=== PATIENT | male | born 1950 | race African-American/Black ===

== ENCOUNTER 2019-05-23 17:15 | Inpatient (IN) ==
[2019-05-23] MEDS ORDERED: OFIRMEV IV 1000 MG VIAL 500 MG/50 ML VIAL IV PRN (17:31)
[2019-05-23] MEDS ORDERED: OFIRMEV IV 1000 MG VIAL 1,000 MG/100 ML VIAL IV PRN (17:32)
[2019-05-23] MEDS ORDERED: OFIRMEV IV 1000 MG VIAL 1,000 MG/100 ML VIAL IV ONE (17:40)
--- NOTE | 2019-05-23 17:56 | DR.DIZZY ---
HPI Time seen Time Seen by Provider: 05/23/19 17:55 PCP Primary Care Physician: TONYA HPI Comment HPI Comment: PATIENT IS 69YR OLD MALE IS IN THE EMERGENCY ROOM WITH ELEVATED TEMP AND GENERALIZED WEAKNESS. HE IS SLEEPY BUT WILL WAKE UP AND TALK AND ANSWER QUESTIONS. HE DEVELOP FEVER O04/29/2019 WHEN HE WENT TO HAVE EYE SURGERY. IT WAS CANCEL DUE TO FEVER. AT THAT TIME HE HAD ABSCESS ON HIS BACK.HE WAS GIVEN BACTRIM DS. TOOK MED FOR FEW DAYS AND STOP BECAUSE HE DID NOT LIKE THE WAY BACTRIM MADE HIM FEEL. HE STARTED BACTRIM 2 DAYS AGO WHEN FEVER STRTED AGAIN. TODAY HE IS WEAK, NOT ABLE TO WALK. TENMP 105'F IN ED CURRENTLY. Complaint Chief Complaint Doctor Comments: GENERALIZE WEAKNESS AND ELEVATED TEMPERATURE. Chief Complaint:: "WE CALLED THE DOCTOR'S OFFICE EARLIER TODAY AND THEY SAID HE IS ALLERGIC TO BACTRIM. HE HAS A ABCESS ON HIS BACK THAT HE HAS BEEN TAKING BACTRIM FOR. HE CAN'T WALK OR MOVE HIS LOWER BODY." Self Treatment fo Chief Complaint: NONE Nurses Notes Reviewed Nurses Notes Review: Yes Source History Provided: Patient Mode of Arrival Mode of Arrival: Wheelchair Timing Onset of Chief Complaint: 05/23/19 Came on: Gradually Duration Duration: Constant Duration: Weeks Location of Weakness Weakness Location: Generalized Context Onset: At rest History of: None Stroke Symptoms: Dizziness Severity Severity: Normal activity level Modifying factors Worsens: Change in Position PMH PMH Past Medical History: No Past Surgical History: No Family History History of Family Medical Conditions: Yes Family Medical History: Diabetes Mellitus and Hypertension Social History Does patient currently use any type of tobacco product: No Have you used tobacco products in the last 12 months: No Type of Tobacco Use: None Does any household member use tobacco: No Alcohol Use: None Do you use any recreational Drugs:: No Lives With: Family Lives Where: Home infectious screening In the last 2 months have you had wt loss of >10#?: NO Have you had fever, night sweats or hemotysis?: No Have you traveled outside the country in the last 6 months?: No Isolation: Standard PE Vital Signs Vitals: Temperature 98.4 F Pulse Rate [Apical] 124 Pulse Rate 100 Respiratory Rate 18 Blood Pressure [Right Arm] 95/51 Blood Pressure 113/54 O2 Sat by Pulse Oximetry 95 ROR Labs Reviewed Result Diagrams: 05/23/19 17:26 05/23/19 17:26 Laboratory: WBC 9.4 X10^3/uL (3.6-10.0) 05/23/19 17: RBC 4.12 X10^6/uL (4.7-6.0) L 05/23/19 17: Hgb 13.1 g/dL (13.5-18.0) L 05/23/19 17: Hct 38.1 % (42.0-54.0) L 05/23/19 17: MCV 92.5 fL (80.0-100.0) 05/23/19 17: MCH 31.8 pg (27.0-34.0) 05/23/19 17: MCHC 34.4 g/dL (33.0-35.0) 05/23/19 17: RDW 13.4 % (11.6-16.5) 05/23/19 17: Plt Count 233 X10^3/uL (150.0-450.0) 05/23/19 17: MPV 8.2 fL (7.4-11.0) 05/23/19 17: Neut % (Auto) 78.1 % (42.0-75.0) H 05/23/19 17: Lymph % (Auto) 11.3 % (21.0-51.0) L 05/23/19 17: [place] % (Auto) 9.5 % (0.0-13.0) 05/23/19 17: Eos % (Auto) 0.2 % (0.9-2.9) L 05/23/19 17: Baso % (Auto) 0.9 % (0.2-1.0) 05/23/19 17: Neut # (Auto) 7.4 x10^3/uL (2.2-4.8) H 05/23/19 17: Lymph # (Auto) 1.1 X10^3/uL (1.3-2.9) L 05/23/19 17:26 [place] # (Auto) 0.9 x10^3/uL (0.3-0.8) H 05/23/19 17: Eos # (Auto) 0.0 x10^3/uL (0.0-0.2) 05/23/19 17:26 Baso # (Auto) 0.1 X10^3/uL (0.0-0.1) 05/23/19 17:26 Absolute Nucleated RBC 0.1 /100WBC 05/23/19 17:26 Sodium 140 mmol/L (136-145) 05/23/19 17:26 Corrected Sodium 141 mmol/L (136-145) 05/23/19 17:26 Potassium 3.3 mmol/L (3.5-5.1) L 05/23/19 17:26 Chloride 104 mmol/L (98-107) 05/23/19 17:26 Carbon Dioxide 21.6 mmol/L (21-32) 05/23/19 17:26 BUN 28 mg/dL (7-18) H 05/23/19 17:26 Creatinine 2.44 mg/dL (0.70-1.30) H 05/23/19 17:26 Est GFR (MDRD) Af Amer 34 (>60) L 05/23/19 17:26 Est GFR (MDRD) Non-Af 28 (>60) L 05/23/19 17:26 Glucose 126 mg/dL (65-99) H 05/23/19 17:26 Lactic Acid 2.2 mmol/L (0.4-2.0) H 05/23/19 17:26 Calcium 9.3 mg/dL (8.5-10.1) 05/23/19 17:26 Corrected Calcium TNP 05/23/19 17:26 Total Bilirubin 1.30 mg/dL (0.2-1.0) H 05/23/19 17:26 AST 43 Units/L (15-37) H 05/23/19 17:26 ALT 44 Units/L (12-78) 05/23/19 17:26 Alkaline Phosphatase 52 Units/L (46-116) 05/23/19 17:26 Total Protein 8.4 g/dL (6.4-8.2) H 05/23/19 17:26 Albumin 3.9 g/dL (3.4-5.0) 05/23/19 17:26 Globulin 4.5 g/dL (2.5-4.5) 05/23/19 17:26 Albumin/Globulin Ratio 0.9 Ratio (1.1-2.1) L 05/23/19 17:26 Specimen Type Random urine 05/23/19 19:40 Urine Color Yellow (YELLOW) 05/23/19 19:40 Urine Appearance Slightly hazy (CLEAR) 05/23/19 19:40 Urine pH 5.0 (5.0 - 8.0) 05/23/19 19:40 Ur Specific [place] 1.015 (1.000-1.030) 05/23/19 19:40 Urine Protein 3+ (NEGATIVE) 05/23/19 19:40 Urine Glucose (UA) Negative (NEGATIVE) 05/23/19 19:40 Urine Ketones 1+ (NEGATIVE) 05/23/19 19:40 Urine Occult Blood 5+ (NEGATIVE) 05/23/19 19:40 Urine Nitrite Negative (NEGATIVE) 05/23/19 19:40 Urine Bilirubin Negative (NEGATIVE) 05/23/19 19:40 Urine Urobilinogen Normal (NORMAL) 05/23/19 19:40 Ur Leukocyte Esterase Negative (NEGATIVE) 05/23/19 19:40 Urine RBC 0-2 /HPF (NONE SEEN) 05/23/19 19:40 Urine WBC 0-2 /HPF (NONE SEEN) 05/23/19 19:40 Ur Squamous Epith Cells Moderate /HPF (NEGATIVE) 05/23/19 19:40 Urine Bacteria Trace /HPF (NEGATIVE) 05/23/19 19:40 Urine Mucus Few /HPF (NEGATIVE) 05/23/19 19:40 Ur Culture Indicated? No/not indicated 05/23/19 19:40 Opioid Opioid Risk Tool Total: 0 Total Score Risk Category: Low Risk Copyright: Ze JOHNSON predicting aberrant behaviors Instructions Forms: Excuse From Work
[2019-05-23] MEDS ORDERED: NS 1000 ML 1,000 ML IV SCH (18:00)
[2019-05-23 18:09] LABS: BASOPHILS # (AUTO) 0.1 X10^3/uL (0.0-0.1); BASOPHILS % (AUTO) 0.9 % (0.2-1.0); EOSINOPHILS % (AUTO) 0.2 % (0.9-2.9); HEMATOCRIT 38.1 % (42.0-54.0); HEMOGLOBIN 13.1 g/dL (13.5-18.0); LYMPHOCYTES # (AUTO) 1.1 X10^3/uL (1.3-2.9); LYMPHOCYTES % (AUTO) 11.3 % (21.0-51.0); MEAN CORPUSCULAR HEMOGLOBIN 31.8 pg (27.0-34.0); MEAN CORPUSCULAR HGB CONC 34.4 g/dL (33.0-35.0); MEAN CORPUSCULAR VOLUME 92.5 fL (80.0-100.0); MEAN PLATELET VOLUME 8.2 fL (7.4-11.0); MONOCYTES # (AUTO) 0.9 x10^3/uL (0.3-0.8); MONOCYTES % (AUTO) 9.5 % (0.0-13.0); NEUTROPHILS # (AUTO) 7.4 x10^3/uL (2.2-4.8); NEUTROPHILS % (AUTO) 78.1 % (42.0-75.0); PLATELET COUNT 233 X10^3/uL (150.0-450.0); RED BLOOD COUNT 4.12 X10^6/uL (4.7-6.0); RED CELL DISTRIBUTION WIDTH 13.4 % (11.6-16.5); WHITE BLOOD COUNT 9.4 X10^3/uL (3.6-10.0)
[2019-05-23] MEDS ORDERED: TORADOL 30 MG VIAL ONE (18:15)
[2019-05-23] MEDS ORDERED: NS 1000 ML 1,000 ML IV ONE ×2 (18:15→19:22)
[2019-05-23] MEDS ORDERED: TORADOL 30 MG VIAL IVP ONE (18:15)
[2019-05-23 18:18] LABS: ALANINE AMINOTRANSFERASE 44 Units/L (12-78); ALBUMIN 3.9 g/dL (3.4-5.0); ALKALINE PHOSPHATASE 52 Units/L (46-116); ASPARTATE AMINO TRANSFERASE 43 Units/L (15-37); BLOOD UREA NITROGEN 28 mg/dL (7-18); CALCIUM 9.3 mg/dL (8.5-10.1); CARBON DIOXIDE 21.6 mmol/L (21-32); CHLORIDE 104 mmol/L (98-107); COR NA(FOR HYPERGLY) 141 mmol/L (136-145); CREATININE 2.44 mg/dL (0.70-1.30); SODIUM 140 mmol/L (136-145); TOTAL PROTEIN 8.4 g/dL (6.4-8.2); eGFR NON BLACK RACES 28 (>60)
[2019-05-23 18:22] LABS: LACTIC ACID 2.2 mmol/L (0.4-2.0)
--- NOTE | 2019-05-23 18:58 | RAD ---
HISTORY: 69-year-old male with fever and weakness. Study: Frontal view of the chest. Comparison: None. Findings: The trachea is midline. The cardiac silhouette is unremarkable. The lungs are clear without focal consolidation, effusion or pneumothorax. Soft tissues are unremarkable. Osseous structures are unremarkable. IMPRESSION: 1. No acute cardiopulmonary disease. Reported By:
[2019-05-23] MEDS ORDERED: ZOSYN VIAL 3.375 GRAMS 3.375 G in NS 100 ML IV + SPIKE MINIBAG* 100 ML IV ONE (19:19)
[2019-05-23] MEDS ORDERED: VANCOMYCIN HCL 1 GM VIAL 1 G in D5W 250 ML IV 250 ML IV ONE (19:19)
[2019-05-23] MEDS ORDERED: NS 1000 ML 2,000 ML ONE (19:26)
[2019-05-23] MEDS ORDERED: NS 250 ML IV 250 ML ONE (19:28)
[2019-05-23] MEDS ORDERED: VANCOMYCIN HCL 1 GM VIAL ONE (19:28)
[2019-05-23 19:50] LABS: BILIRUBIN,URINE NEGATIVE (NEGATIVE); BLOOD/HEMOGLOBIN,URINE 5+ (NEGATIVE); GLUCOSE, URINE NEGATIVE (NEGATIVE); KETONES,URINE 1+ (NEGATIVE); LEUKOCYTE ESTERASE ,URINE NEGATIVE (NEGATIVE); NITRITES,URINE NEGATIVE (NEGATIVE); PROTEIN,URINE 3+ (NEGATIVE); UROBILINOGEN,URINE NORMAL (NORMAL)
[2019-05-23 19:56] LABS: APPEARANCE,URINE SLIGHTLY HAZY (CLEAR); BACTERIA,URINE TRACE /HPF (NEGATIVE); COLOR,URINE YELLOW (YELLOW); RBC,URINE 0-2 /HPF (NONE SEEN); SQUAMOUS EPITHELIAL CELL,UR MODERATE /HPF (NEGATIVE)
[2019-05-23 19:57] LABS: MUCUS,URINE FEW /HPF (NEGATIVE)
[2019-05-23] MEDS ORDERED: NS 100 ML IV 100 ML ONE (20:10)
[2019-05-23] MEDS ORDERED: ZOSYN VIAL 3.375 GRAMS IV ONE (20:10)
[2019-05-23] MEDS ORDERED: PHARMACY CONSULT - VANCOMYCIN XX SCH (23:00)
[2019-05-23] MEDS ORDERED: NS + KCL 40 MEQ/L 1,000 ML IV SCH (23:30)
[2019-05-23 23:51] VITALS: BMI 24.3
[2019-05-24] MEDS ORDERED: TYLENOL SUPP 650 MG PR PRN (00:04)
[2019-05-24] MEDS ORDERED: NS + KCL 20 MEQ/L 1,000 ML ONE (01:16)
[2019-05-24] MEDS ORDERED: NS + KCL 20 MEQ/L 1,000 ML IV SCH (01:19)
[2019-05-24] MEDS ORDERED: NS + KCL 20 MEQ/L 1,000 ML IV ONE (01:44)
[2019-05-24] MEDS ORDERED: ZOSYN VIAL 3.375 GRAMS IV ONE (04:43)
[2019-05-24] MEDS ORDERED: NS 100 ML IV + SPIKE MINIBAG* 100 ML ONE (04:43)
[2019-05-24] MEDS: ZOSYN VIAL 3.375 GRAMS 3.375 G in NS 100 ML IV + SPIKE MINIBAG* 100 ML IV SCH ×3 (05:29→22:00)
[2019-05-24] MEDS: TYLENOL 325 MG TAB PO PRN ×2 (05:48→15:55)
[2019-05-24 06:20] LABS: BASOPHILS % (AUTO) 0.7 % (0.2-1.0); EOSINOPHILS # (AUTO) 0.1 x10^3/uL (0.0-0.2); HEMOGLOBIN 11.3 g/dL (13.5-18.0); LYMPHOCYTES # (AUTO) 0.6 X10^3/uL (1.3-2.9); LYMPHOCYTES % (AUTO) 9.1 % (21.0-51.0); MEAN CORPUSCULAR HEMOGLOBIN 31.8 pg (27.0-34.0); MEAN CORPUSCULAR HGB CONC 34.3 g/dL (33.0-35.0); MEAN CORPUSCULAR VOLUME 92.9 fL (80.0-100.0); MEAN PLATELET VOLUME 8.3 fL (7.4-11.0); MONOCYTES # (AUTO) 0.5 x10^3/uL (0.3-0.8); MONOCYTES % (AUTO) 8.8 % (0.0-13.0); NEUTROPHILS # (AUTO) 4.8 x10^3/uL (2.2-4.8); NEUTROPHILS % (AUTO) 79.4 % (42.0-75.0); PLATELET COUNT 178 X10^3/uL (150.0-450.0); RED BLOOD COUNT 3.55 X10^6/uL (4.7-6.0); RED CELL DISTRIBUTION WIDTH 13.3 % (11.6-16.5); WHITE BLOOD COUNT 6.1 X10^3/uL (3.6-10.0)
[2019-05-24 06:41] LABS: CREATINE KINASE MB 2.6 ng/mL (0-4.0); MAGNESIUM 1.6 mg/dL (1.7-2.9); PHOSPHORUS 2.3 mg/dL (2.6-4.7); TROPONIN I 0.06 ng/mL (0-1.5)
[2019-05-24 06:42] LABS: CKMB % 0.1 % (<4)
[2019-05-24 06:51] LABS: CRYPTOSPORIDIUM PARVUM ANTIGEN NEGATIVE (NEGATIVE); GIARDIA LAMBLIA ANTIGEN NEGATIVE (NEGATIVE)
[2019-05-24 06:57] LABS: ALANINE AMINOTRANSFERASE 44 Units/L (12-78); ALKALINE PHOSPHATASE 40 Units/L (46-116); ASPARTATE AMINO TRANSFERASE 55 Units/L (15-37); BLOOD UREA NITROGEN 28 mg/dL (7-18); CALCIUM 8.1 mg/dL (8.5-10.1); CARBON DIOXIDE 21.7 mmol/L (21-32); CHLORIDE 110 mmol/L (98-107); COR CA(FOR HYPOALB) 8.9 mg/dL (8.5-10.1); CREATININE 1.95 mg/dL (0.70-1.30); SODIUM 142 mmol/L (136-145); TOTAL PROTEIN 6.8 g/dL (6.4-8.2); eGFR NON BLACK RACES 37 (>60)
[2019-05-24] MEDS: NS 1000 ML 1,000 ML IV SCH ×2 (07:50→15:56)
[2019-05-24] MEDS ORDERED: PREVNAR 13 IM ONE ×2 (12:35→15:51)
--- NOTE | 2019-05-24 13:06 | CT ---
HISTORY: Colitis, diarrhea, fever, and abscess on back. Study: CT abdomen and pelvis without contrast Comparison: None. Technique: Multiple axial images of the abdomen and pelvis were obtained from the lung bases to the pubic symphysis without the administration of IV contrast. Dose reduction techniques including Automated Exposure Control (AEC) and adjustment of mA and kV were utilized. Limited study secondary to lack of IV and oral contrast. Findings: Bibasilar atelectasis versus early infiltrate. The liver, spleen, pancreas, kidneys, and adrenal glands are unremarkable in their CT appearance. The gallbladder is unremarkable in its CT appearance. No significant mesenteric lymphadenopathy or stranding can be observed. No free fluid or free air is seen within the abdomen. Limited evaluation of the bowel secondary to lack of oral contrast and collapse. Diverticulosis without evidence of diverticulitis. Remaining large and small bowel is unremarkable. The appendix is not well seen, but no secondary signs to suggest acute appendicitis. The prostate gland is surgically absent. The urinary bladder is grossly unremarkable. Degenerative changes of the spine. No aggressive osseous lesions. IMPRESSION: 1. No CT evidence of acute abdominal/pelvic pathology. 2. Bibasilar atelectasis versus early infiltrate. 3. Other chronic findings as above. Reported By:
--- NOTE | 2019-05-24 16:02 | DR.H&P ---
H&P - History & Physical for Day of: H&P Date: 05/23/19 - Chief Complaint Chief Complaint: WEAKNESS, DIARRHEA, DIZZINESS - History of Present Illness History of Present Illness: PATIENT IS 69YR OLD MALE ADMITTED FROM ER WITH ELEVATED TEMP AND GENERALIZED WEAKNESS. HE IS SLEEPY BUT WILL WAKE UP AND TALK AND ANSWER QUESTIONS. HE DEVELOPED FEVER O04/29/2019 WHEN HE WENT TO HAVE EYE SURGERY. IT WAS CANCEL DUE TO FEVER. AT THAT TIME HE HAD ABSCESS ON HIS BACK.HE WAS GIVEN BACTRIM DS. TOOK MED FOR FEW DAYS AND STOP BECAUSE HE DID NOT LIKE THE WAY BACTRIM MADE HIM FEEL. HE STARTED BACTRIM 2 DAYS AGO WHEN FEVER STARTED AGAIN. TODAY HE IS WEAK, NOT ABLE TO WALK. TEMP 105'F IN ED CURRENTLY. PT CO PMH OF DM AND HTN. DENIES ANY CHEST PAIN OR SOB, CO DIARRHEA FOR SEVERAL DAYS. PT STARTED ON SEPTIC WORK UP,CULTURE COLLECTED IN ER, IV VANCOMYCIN. IV HYDRATION DUE TO RACHID AND RHABDO. - Past Medical History Past Medical History: Arthritis, Diabetes, GERD, Hypertension - Past Surgical History Surgical History: TURP - Family History Family Medical History: Diabetes Mellitus, Hypertension - Social History Does patient currently use any type of tobacco product: No Have you used tobacco products in the last 12 months: No Type of Tobacco Use: None How many years tobacco product used: 2 Does any household member use tobacco: No Alcohol Use: None Drug Use: None - Medications Home Medications: sulfamethoxazole [From Bactrim] Allergy (Verified 05/23/19 17:30) trimethoprim [From Bactrim] Allergy (Verified 05/23/19 17:30) CONTINUE taking the following medications Unobtainable 05/24/19 [History] - Review of Systems Constitutional: Fever, Chills, Weakness, Malaise Eyes: No Symptoms Reported ENT: No Symptoms Reported Respiratory: No Symptoms Reported Cardiovascular: Light Headedness Gastrointestinal: Nausea, Abdominal Pain, Diarrhea Genitourinary: No Symptoms Reported Musculoskeletal: Back Pain Skin: No Symptoms Reported Neurological: Weakness - Physical Exam Vital Signs: Temperature 98.7 F Pulse Rate [Left Brachial] 96 Pulse Rate [Apical] 124 Pulse Rate 100 Respiratory Rate 18 Blood Pressure [Right Arm] 142/77 Blood Pressure 113/54 O2 Sat by Pulse Oximetry 99 Oriented: Normal Eyes: Normal Ear: Normal, Left Throat: Normal Respiratory: RLL Diminished, LLL Diminished Cardiovascular: Normal, Edema (BILATERAL LOWER EXTREMITY TRACE EDEMA) Auscultation: Bowel Sounds: Increased Tenderness: Suprapubic, Mild Skin: Decreased [place] Musculoskeletal: Normal Psychiatric: Normal Mood Description: Calm Speech Pattern: Clear, Appropriate - Assessment/Plan (1) Rhabdomyolysis Status: Acute Plan: ADMIT, IV HYDRATION. EKG ON ADMISSION, STOOL STUDIES. VERIFY HOME MEDICATION, BS CONTROL. SSI, BP AND CARDIAC MONITORING. IV ANTIBIOTIC THERAPY, BLOOD AND URINE CULTURE ON ADMISSION (2) Dehydration Status: Acute (3) Acute renal failure Status: Acute (4) Sepsis Status: Acute (5) Hypertension Status: Acute (6) Diarrhea Status: Acute - Allergies Allergies/Adverse Reactions: Allergies Allergy/AdvReac Type Severity Reaction Status Date / Time sulfamethoxazole Allergy Verified 05/23/19 17:30 [From Bactrim] trimethoprim [From Bactrim] Allergy Verified 05/23/19 17:30
[2019-05-24 16:49] LABS: TROPONIN I 0.04 ng/mL (0-1.5)
[2019-05-24 17:21] LABS: CKMB % 0.1 % (<4)
[2019-05-24] MEDS: MAGNESIUM SULFATE 1 GRAM/100 mL PREMIX 1 GM/100 ML BAG IV PRN (18:28)
[2019-05-24] MEDS: VANCOMYCIN HCL 1 GM VIAL 1 G in D5W 250 ML IV 250 ML IV SCH (21:00)
[2019-05-25] MEDS: NS 1000 ML 1,000 ML IV SCH ×3 (01:26→18:21)
[2019-05-25] MEDS: MAGNESIUM SULFATE 1 GRAM/100 mL PREMIX 1 GM/100 ML BAG IV PRN (01:27)
[2019-05-25] MEDS: ZOSYN VIAL 3.375 GRAMS 3.375 G in NS 100 ML IV + SPIKE MINIBAG* 100 ML IV SCH ×3 (06:59→21:21)
[2019-05-25] MEDS ORDERED: ZOFRAN INJ 4 MG VIAL ONE (07:38)
[2019-05-25] MEDS: ZOFRAN INJ 4 MG VIAL IVP PRN ×2 (07:42→18:22)
[2019-05-25] MEDS: LOTENSIN TAB 10 MG PO SCH (08:31)
[2019-05-25] MEDS: PriLOSEC PO SCH ×2 (08:31→21:21)
[2019-05-25] MEDS: NORVASC TAB 5 MG PO SCH (08:31)
[2019-05-25] MEDS: MOBIC TAB 15 MG PO SCH (08:31)
[2019-05-25 12:33] LABS: BASOPHILS # (AUTO) 0.1 X10^3/uL (0.0-0.1); BASOPHILS % (AUTO) 2.7 % (0.2-1.0); EOSINOPHILS # (AUTO) 0.1 x10^3/uL (0.0-0.2); EOSINOPHILS % (AUTO) 3.1 % (0.9-2.9); HEMATOCRIT 32.3 % (42.0-54.0); HEMOGLOBIN 11.3 g/dL (13.5-18.0); LYMPHOCYTES # (AUTO) 1.1 X10^3/uL (1.3-2.9); LYMPHOCYTES % (AUTO) 26.3 % (21.0-51.0); MEAN CORPUSCULAR HEMOGLOBIN 32.2 pg (27.0-34.0); MEAN CORPUSCULAR HGB CONC 34.9 g/dL (33.0-35.0); MEAN CORPUSCULAR VOLUME 92.2 fL (80.0-100.0); MEAN PLATELET VOLUME 7.8 fL (7.4-11.0); MONOCYTES # (AUTO) 0.4 x10^3/uL (0.3-0.8); NEUTROPHILS # (AUTO) 2.5 x10^3/uL (2.2-4.8); NEUTROPHILS % (AUTO) 58.9 % (42.0-75.0); PLATELET COUNT 155 X10^3/uL (150.0-450.0); RED CELL DISTRIBUTION WIDTH 13.5 % (11.6-16.5); WHITE BLOOD COUNT 4.2 X10^3/uL (3.6-10.0)
[2019-05-25 12:48] LABS: LACTIC ACID 0.9 mmol/L (0.4-2.0)
[2019-05-25 12:54] LABS: ALANINE AMINOTRANSFERASE 46 Units/L (12-78); ALBUMIN 3.1 g/dL (3.4-5.0); ALKALINE PHOSPHATASE 40 Units/L (46-116); ASPARTATE AMINO TRANSFERASE 45 Units/L (15-37); BLOOD UREA NITROGEN 8 mg/dL (7-18); CALCIUM 8.3 mg/dL (8.5-10.1); CARBON DIOXIDE 25.7 mmol/L (21-32); CHLORIDE 108 mmol/L (98-107); CREATINE KINASE MB 2.4 ng/mL (0-4.0); CREATININE 1.19 mg/dL (0.70-1.30); MAGNESIUM 1.8 mg/dL (1.7-2.9); SODIUM 140 mmol/L (136-145); TOTAL PROTEIN 6.9 g/dL (6.4-8.2); TROPONIN I < 0.02 ng/mL (0-1.5); eGFR NON BLACK RACES > 60 (>60)
[2019-05-25 12:56] LABS: CKMB % 0.2 % (<4); CREATINE KINASE 1512 Units/L (39-308)
[2019-05-25] MEDS: VANCOMYCIN HCL 1 GM VIAL 1 G in D5W 250 ML IV 250 ML IV SCH (23:00)
[2019-05-26] MEDS: NS 1000 ML 1,000 ML IV SCH
[2019-05-26 05:14] LABS: BASOPHILS % (AUTO) 0.5 % (0.2-1.0); EOSINOPHILS # (AUTO) 0.1 x10^3/uL (0.0-0.2); EOSINOPHILS % (AUTO) 3.1 % (0.9-2.9); HEMATOCRIT 28.5 % (42.0-54.0); LYMPHOCYTES # (AUTO) 1.5 X10^3/uL (1.3-2.9); LYMPHOCYTES % (AUTO) 41.8 % (21.0-51.0); MEAN CORPUSCULAR HEMOGLOBIN 32.4 pg (27.0-34.0); MEAN CORPUSCULAR HGB CONC 35.3 g/dL (33.0-35.0); MEAN CORPUSCULAR VOLUME 91.8 fL (80.0-100.0); MEAN PLATELET VOLUME 8.6 fL (7.4-11.0); MONOCYTES # (AUTO) 0.4 x10^3/uL (0.3-0.8); MONOCYTES % (AUTO) 11.9 % (0.0-13.0); NEUTROPHILS # (AUTO) 1.6 x10^3/uL (2.2-4.8); NEUTROPHILS % (AUTO) 42.7 % (42.0-75.0); PLATELET COUNT 143 X10^3/uL (150.0-450.0); RED CELL DISTRIBUTION WIDTH 13.4 % (11.6-16.5); WHITE BLOOD COUNT 3.6 X10^3/uL (3.6-10.0)
[2019-05-26 05:39] LABS: ALANINE AMINOTRANSFERASE 39 Units/L (12-78); ALBUMIN 2.8 g/dL (3.4-5.0); ALKALINE PHOSPHATASE 33 Units/L (46-116); ASPARTATE AMINO TRANSFERASE 36 Units/L (15-37); BLOOD UREA NITROGEN 11 mg/dL (7-18); CALCIUM 8.3 mg/dL (8.5-10.1); CARBON DIOXIDE 24.7 mmol/L (21-32); CHLORIDE 109 mmol/L (98-107); CKMB % 0.2 % (<4); COR CA(FOR HYPOALB) 9.3 mg/dL (8.5-10.1); CREATINE KINASE 811 Units/L (39-308); CREATINE KINASE MB 1.6 ng/mL (0-4.0); CREATININE 1.23 mg/dL (0.70-1.30); SODIUM 141 mmol/L (136-145); TOTAL PROTEIN 6.5 g/dL (6.4-8.2); TROPONIN I < 0.02 ng/mL (0-1.5); eGFR NON BLACK RACES > 60 (>60)
[2019-05-26] MEDS: ZOSYN VIAL 3.375 GRAMS 3.375 G in NS 100 ML IV + SPIKE MINIBAG* 100 ML IV SCH (06:32)
[2019-05-26] MEDS: MOBIC TAB 15 MG PO SCH (09:06)
[2019-05-26] MEDS: LOTENSIN TAB 10 MG PO SCH (09:06)
[2019-05-26] MEDS: PriLOSEC PO SCH (09:06)
[2019-05-26] MEDS: NORVASC TAB 5 MG PO SCH (09:06)
[2019-05-26 10:40] VITALS: BP 142/83
[2019-05-26] MEDS ORDERED: PHARMACY COMMENT IV SCH (20:45)
== END 2019-05-26 12:50 | disposition home or self-care (01) | DRG 872 ==
LOC: ER 17:20 → OBS 17:20 → OBSVTOIN 22:06 → OBS 22:24 → MED/SURG 05-24 14:42
PROVIDERS: ADMIT Internal Medicine; ATTEND Internal Medicine
DX: M62.82 Rhabdomyolysis; L02.212 Cutaneous abscess of back [any part, except buttock and flank]; R42 Dizziness and giddiness; K21.9 Gastro-esophageal reflux disease without esophagitis; I10 Essential (primary) hypertension; R94.4 Abnormal results of kidney function studies; N17.9 Acute kidney failure, unspecified; E11.65 Type 2 diabetes mellitus with hyperglycemia; M19.90 Unspecified osteoarthritis, unspecified site; E86.0 Dehydration; R19.7 Diarrhea, unspecified; A41.9 Sepsis, unspecified organism
CPT/HCPCS: 36415; 71010; 71045; 74176; 80053; 81001; 82270; 82550; 82553; 83605; 83630; 83735; 84100; 84484; 85025; 85610; 85730; 87040; 87045; 87328; 87329; 87427; 87449; 87493; 87899; 93005; 94760; 96365; 96367; 96374; 96375; 99231; 99238; 99284; A4222; 90670; J0131; J1885; J2405; J2543; J3370; J3475; J3490; J7030; J7050; J7060